=== PATIENT | female | born 1985 | race American Indian/Alaskan Native ===

== ENCOUNTER 2018-08-30 05:39 | Emergency (ER) | payer MEDICAID ==
[2018-08-30] MEDS ORDERED: NACL 0.9% 1000 ML 1,000 ML IV ONE (06:02)
[2018-08-30 06:28] LABS: Basophils # (Auto) 0.1 K/mm3 (0.0-0.1); Basophils % (Auto) 1.4 % (0.0-1.8); Eosinophils # (Auto) 0.5 K/mm3 (0.0-0.4); Eosinophils % (Auto) 8.4 % (0.0-4.3); Hematocrit 38.6 % (30.3-42.9); Hemoglobin 12.7 gm/dl (10.1-14.3); Lymphocytes # (Auto) 1.8 K/mm3 (1.2-5.4); Lymphocytes % (Auto) 31.4 % (13.4-35.0); Mean Corpuscular HGB Conc 33 % (30-34); Mean Corpuscular Volume 82 fl (79-97); Monocytes # (Auto) 0.9 K/mm3 (0.0-0.8); Monocytes % (Auto) 14.8 % (0.0-7.3); Red Blood Count 4.69 M/mm3 (3.65-5.03); Red Cell Distribution Width 16.5 % (13.2-15.2)
[2018-08-30 06:29] LABS: Platelet Count 245 K/mm3 (140-440)
[2018-08-30 06:44] VITALS: BP 140/90
[2018-08-30 06:46] LABS: Bacteria,Urine 1+ /HPF (Negative); Bilirubin,Urine NEG (Negative); Blood,Urine NEG (Negative); Color,Urine Yellow (Yellow); Mucus,Urine FEW /HPF; Protein,Urine <15 mg/dL mg/dL (Negative)
[2018-08-30 06:47] LABS: Alanine Aminotransferase 10 units/L (7-56); Albumin 4.2 g/dL (3.9-5); BUN/Creatinine Ratio 14; Blood Urea Nitrogen 10 mg/dL (7-17); Calcium 8.9 mg/dL (8.4-10.2); Hemolysis Index 3
--- NOTE | 2018-08-30 06:50 | Emergency Department Report ---
ED Abdominal Pain HPI - General Chief Complaint: Abdominal Pain Stated Complaint: ABDOMINAL PAIN Time Seen by Provider: 08/30/18 06:36 Source: patient Mode of arrival: Ambulatory Limitations: No Limitations - History of Present Illness Initial Comments: Patient is a 33-year-old female presents emergency room with complaints of epigastric pain and dysuria and vaginal discharge. Patient states her symptoms started a week ago and are unchanged. Patient states that the vaginal discharge is a clear discharge that is a little bit more than her normal discharge. Patient denies vaginal pain. She denies fever and chills. Patient epigastric pain is a 8 out of 10. Patient states his intermediate. Patient states that the epigastric pain as a burning and nonradiating. Patient states she's had a lot of burping. MD Complaint: abdominal pain -: Sudden Location: epigastric Radiation: none Migration to: no migration Severity: severe Severity scale (0 -10): 8 Quality: stabbing Consistency: intermittent Improves With: rest Worsens With: eating Associated Symptoms: denies: nausea, vomiting, diarrhea, fever, chills, constipation, dysuria, hematemesis, hematochezia, melena, hematuria, anorexia, syncope Treatments Prior to Arrival: NSAIDs - Related Data LMP (females 10-50): this week Previous Rx's Medication Instructions Recorded Last Taken Type Esomeprazole Magnesium [Nexium] 40 mg PO DAILY 20 Days #20 08/30/18 Unknown Rx capsule. Fluconazole [Diflucan TAB] 150 mg PO ONCE 1 Days #1 tablet 08/30/18 Unknown Rx Sulfamethoxazole/Trimethoprim 1 each PO BID 10 Days #20 tablet 08/30/18 Unknown Rx [Bactrim DS TAB] Allergies Allergy/AdvReac Type Severity Reaction Status Date / Time No Known Allergies Allergy Unverified 08/30/18 05:50 ED Review of Systems ROS: Stated complaint: ABDOMINAL PAIN Other details as noted in HPI Constitutional: denies: chills, fever Eyes: denies: eye pain, eye discharge, vision change ENT: denies: ear pain, throat pain Respiratory: denies: cough, shortness of breath, wheezing Cardiovascular: denies: chest pain, palpitations Endocrine: no symptoms reported Gastrointestinal: abdominal pain. denies: nausea, diarrhea Genitourinary: dysuria, discharge. denies: urgency Musculoskeletal: denies: back pain, joint swelling, arthralgia Skin: denies: rash, lesions Neurological: denies: headache, weakness, paresthesias Psychiatric: denies: anxiety, depression Hematological/Lymphatic: denies: easy bleeding, easy bruising ED Past Medical Hx - Past Medical History Previous Medical History?: No - Surgical History Past Surgical History?: No - Family History Family history: no significant - Social History Smoking Status: Current Every Day Smoker Substance Use Type: Alcohol, Marijuana - Medications Home Medications: Home Medications Medication Instructions Recorded Confirmed Last Taken Type Esomeprazole Magnesium [Nexium] 40 mg PO DAILY 20 Days #20 08/30/18 Unknown Rx capsule.dr Fluconazole [Diflucan TAB] 150 mg PO ONCE 1 Days #1 tablet 08/30/18 Unknown Rx Sulfamethoxazole/Trimethoprim 1 each PO BID 10 Days #20 tablet 08/30/18 Unknown Rx [Bactrim DS TAB] ED Physical Exam - General Limitations: No Limitations General appearance: alert, in no apparent distress - Head Head exam: Present: atraumatic, normocephalic - Eye Eye exam: Present: normal appearance, PERRL Pupils: Present: normal accommodation - ENT ENT exam: Present: mucous membranes moist - Neck Neck exam: Present: normal inspection - Respiratory Respiratory exam: Present: normal lung sounds bilaterally. Absent: respiratory distress - Cardiovascular Cardiovascular Exam: Present: regular rate, normal rhythm. Absent: systolic murmur, diastolic murmur, rubs, gallop - GI/Abdominal GI/Abdominal exam: Present: soft, tenderness (epigastric tenderness), normal bowel sounds - Extremities Exam Extremities exam: Present: normal inspection - Back Exam Back exam: Present: normal inspection - Neurological Exam Neurological exam: Present: alert, oriented X3 - Psychiatric Psychiatric exam: Present: normal affect, normal mood - Skin Skin exam: Present: warm, dry, intact, normal color. Absent: rash ED Course Vital Signs 08/30/18 08/30/18 08/30/18 05:50 06:02 06:43 Temperature 98.4 F Pulse Rate 96 H Respiratory 18 Rate Blood Pressure 174/104 Blood Pressure 165/97 140/90 [Right] O2 Sat by Pulse 100 Oximetry - Reevaluation(s) Reevaluation #1: Discussed all results with patient. Patient voiced understanding of results and instructions. Patient stable for discharge. Patient given discharge instructions. Patient to be discharged home. Patient states she is feeling better. Patient agrees to plan of care and discharge. 08/30/18 07:50 ED Medical Decision Making - Lab Data Result diagrams: 08/30/18 06:10 08/30/18 06:10 - Radiology Data Radiology results: report reviewed FINAL REPORT EXAM: CT ABDOMEN PELVIS WO CON HISTORY: abd pain TECHNIQUE: Routine axial imaging was obtained of the abdomen and pelvis without oral or IV contrast. Sagittal and coronal reconstructions were reviewed. FINDINGS: The lung bases are negative for infiltrates or effusions. The liver, gallbladder, biliary tree, pancreas, spleen, and adrenal glands appear normal. The kidneys reveal 1.8 cm cortical cyst in lower pole of left kidney. There is no evidence of hydronephrosis. The bowel loops are normal in caliber and course. The appendix is not enlarged. There is a small umbilical hernia containing omental fat. 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 There is a left ovarian cyst measuring 2.8 cm in diameter. Free fluid is not seen. The bladder is unremarkable. There are phleboliths along the floor pelvis. The skeletal structures do not show any acute changes. IMPRESSION: No acute process in the abdomen and pelvis. 1.8 cm cortical cyst in the lower pole of left kidney. No evidence of hydronephrosis. No evidence of appendicitis. Small umbilical hernia containing omental fat. 2.8 cm left ovarian cyst. No evidence of free fluid. - Medical Decision Making Patient is a 33-year-old female that presents to emergency room with complaints of epigastric pain and lower abdominal pain. Patient epigastric pain clinically consistent with gastritis. Patient's lower abdominal pain consistent with ovarian cyst. Patient also found to have a UTI. Patient will be treated accordingly with antibiotics and given Diflucan. Patient and struck to the follow-up with primary care, window glass installer and [facility]. Patient advised to avoid NSAIDs for her gastritis. Patient also advised to avoid alcohol. Patient stable for discharge. Patient given discharge instructions. Patient given return to ER instructions. Patient given medication instructions. Patient voiced understanding of all instructions. - Differential Diagnosis gastritis. Epigastric pain. Ovarian cyst. Lower abdomen pain. UTI Critical care attestation.: If time is entered above; I have spent that time in minutes in the direct care of this critically ill patient, excluding procedure time. ED Disposition Clinical Impression: Vaginal discharge Abdominal pain Qualifiers: Abdominal location: lower abdomen, unspecified Qualified Code(s): R10.30 - Lower abdominal pain, unspecified UTI (urinary tract infection) Qualifiers: Urinary tract infection type: acute cystitis Hematuria presence: with hematuria Qualified Code(s): N30.01 - Acute cystitis with hematuria Gastritis Qualifiers: Gastritis type: unspecified gastritis Chronicity: acute Gastritis bleeding: without bleeding Qualified Code(s): K29.00 - Acute gastritis without bleeding Ovarian cyst Qualifiers: Laterality: left Qualified Code(s): N83.202 - Unspecified ovarian cyst, left side Disposition: TO HOME OR SELFCARE Is pt being admited?: No Does the pt Need Aspirin: No Condition: Stable Instructions: Ovarian Cyst (ED), Urinary Tract Infection in Women (ED), Dysuria (ED), Abdominal Pain (ED) Additional Instructions: Patient to follow-up with primary care in 2-3 days. Patient to follow up with window glass installer in 2-3 days. Patient to follow-up with [facility] in 2-3 days. Pat ient to return to ER if condition worsens. Patient to take meds as directed. Patient to eat a GERD diet. Patient to avoid alcohol. Patient to avoid NSAIDs. Patient to rest. Patient to increase water. Patient's take Tylenol when necessary for pain. Prescriptions: Esomeprazole Magnesium [Nexium] 40 mg PO DAILY 20 Days #20 capsule. Fluconazole [Diflucan TAB] 150 mg PO ONCE 1 Days #1 tablet Sulfamethoxazole/Trimethoprim [Bactrim DS TAB] 1 each PO BID 10 Days #20 tablet Referrals: GUERITA LEARY MD [Primary Care Provider] - 3-5 Days Forms: Work/School Release Form(ED) Time of Disposition: 07:48
--- NOTE | 2018-08-30 07:40 | Cat Scan Report ---
FINAL REPORT EXAM: CT ABDOMEN PELVIS WO CON HISTORY: abd pain TECHNIQUE: Routine axial imaging was obtained of the abdomen and pelvis without oral or IV contrast. Sagittal and coronal reconstructions were reviewed. FINDINGS: The lung bases are negative for infiltrates or effusions. The liver, gallbladder, biliary tree, pancreas, spleen, and adrenal glands appear normal. The kidneys reveal 1.8 cm cortical cyst in lower pole of left kidney. There is no evidence of hydronephrosis. Th e bowel loops are normal in caliber and course. The appendix is not enlarged. There is a small umbili rhett hernia containing omental fat. 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 There is a left ovarian cyst measuring 2.8 cm in diameter. Free fluid is not seen. The bladder is unremarkable . There are phleboliths along the floor pelvis. The skeletal structures do not show any acute changes . IMPRESSION: No acute process in the abdomen and pelvis. 1.8 cm cortical cyst in the lower pole of left kidney. No evidence of hydronephrosis. No evidence of appendicitis. Small umbilical hernia containing omental fat. 2.8 cm left ovarian cyst. No evidence of free fluid.
== END 2018-08-30 08:20 | disposition home or self-care (01) ==
LOC: ED 05:39
DX: K29.00 Acute gastritis without bleeding (principal); N39.0 Urinary tract infection, site not specified; N83.202 Unspecified ovarian cyst, left side; N89.8 Other specified noninflammatory disorders of vagina; F17.200 Nicotine dependence, unspecified, uncomplicated
CPT/HCPCS: 36415; 74176; 80053; 81001; 83690; 84703; 85025; 99284